=== PATIENT | male | born 1985 | race Caucasian/White ===

== ENCOUNTER 2019-01-25 18:05 | Emergency (ER) | payer BC ==
[2019-01-25] MEDS ORDERED: HYDROCODONE/APAP 7.5/325 MG TAB ONE (19:54)
--- NOTE | 2019-01-25 22:07 | EDPHYS ---
Physician Documentation [facility] Name: Liu Dowling Age: 34 yrs Sex: Male : 1985 Arrival Date: 01/25/2019 Time: 18:07 Bed 26 Private MD: Cristóbal Parry E ED Physician Sirena Dowlingy HPI: 01/25 19:48 This 34 yrs old Male presents to ER via Ambulatory with complaints of Ankle jr8 Injury. 19:48 The patient presents with decreased range of motion, pain, tenderness. The complaints jr8 affect the left ankle. Onset: The symptoms/episode began/occurred acutely, today. Context: The problem was sustained at home, resulted from slipping on steps. Associated signs and symptoms: The patient has no apparent associated signs or symptoms. Modifying factors: The symptoms are alleviated by nothing, the symptoms are aggravated by weight bearing, movement. Severity of symptoms: At their worst the symptoms were moderate, in the emergency department the symptoms are unchanged. The patient has experienced a previous episode. The patient has not recently seen a physician. Historical: - Allergies: 19:03 No Known Allergies; ph - Home Meds: 19:23 Clonidine Oral [Active]; Lunesta Oral [Active]; Wellbutrin Oral [Active]; mg2 - PMHx: 19:03 Depression; insomnia; Hypertension; ph - PSHx: 19:03 ankle; ph - Immunization history:: Adult Immunizations unknown. - Social history:: Smoking status: Patient/guardian denies using tobacco. - Ebola Screening: : No symptoms or risks identified at this time. ROS: 19:48 Eyes: Negative for injury, pain, redness, and discharge, ENT: Negative for injury, jr8 pain, and discharge, Neck: Negative for injury, pain, and swelling, Cardiovascular: Negative for chest pain, palpitations, and edema, Respiratory: Negative for shortness of breath, cough, wheezing, and pleuritic chest pain, Abdomen/GI: Negative for abdominal pain, nausea, vomiting, diarrhea, and constipation, Back: Negative for injury and pain, Skin: Negative for injury, rash, and discoloration, Neuro: Negative for headache, weakness, numbness, tingling, and seizure. 19:48 MS/extremity: Positive for decreased range of motion, pain, tenderness, of the left ankle. Exam: 19:48 Head/Face: Normocephalic, atraumatic. Eyes: Pupils equal round and reactive to light, jr8 extra-ocular motions intact. Lids and lashes normal. Conjunctiva and sclera are non-icteric and not injected. Cornea within normal limits. Periorbital areas with no swelling, redness, or edema. ENT: Nares patent. No nasal discharge, no septal abnormalities noted. Tympanic membranes are normal and external auditory canals are clear. Oropharynx with no redness, swelling, or masses, exudates, or evidence of obstruction, uvula midline. Mucous membranes moist. Neck: Trachea midline, no thyromegaly or masses palpated, and no cervical lymphadenopathy. Supple, full range of motion without nuchal rigidity, or vertebral point tenderness. No Meningismus. Cardiovascular: Regular rate and rhythm with a normal S1 and S2. No gallops, murmurs, or rubs. Normal PMI, no JVD. No pulse deficits. Respiratory: Lungs have equal breath sounds bilaterally, clear to auscultation and percussion. No rales, rhonchi or wheezes noted. No increased work of breathing, no retractions or nasal flaring. Abdomen/GI: Soft, non-tender, with normal bowel sounds. No distension or tympany. No guarding or rebound. No evidence of tenderness throughout. Back: No spinal tenderness. No costovertebral tenderness. Full range of motion. Skin: Warm, dry with normal turgor. Normal color with no rashes, no lesions, and no evidence of cellulitis. Neuro: Awake and alert, GCS 15, oriented to person, place, time, and situation. Cranial nerves II-XII grossly intact. Motor strength 5/5 in all extremities. Sensory grossly intact. Cerebellar exam normal. Normal gait. 19:48 Musculoskeletal/extremity: Extremities: grossly normal except: noted in the left ankle: pain, tenderness, Mild swelling and bruising noted to lateral ankle. No obvious deformity , ROM: limited active range of motion due to pain, limited passive range of motion due to pain, decreased due to pain, Circulation is intact in all extremities. Sensation intact. Vital Signs: 19:03 BP 143 / 100; Pulse 96; Resp 20; Temp 98.5; Pulse Ox 100% on R/A; Weight 88.45 kg; ph Height 5 ft. 9 in. (175.26 cm); Pain 10/10; 21:09 BP 137 / 80; Pulse 93; Resp 18; Pulse Ox 97% on R/A; tl3 21:59 BP 121 / 89; Pulse 96; Resp 18; Pulse Ox 100% ; tl3 19:03 Body Mass Index 28.80 (88.45 kg, 175.26 cm) ph Procedures: 22:05 Splinting: Splint applied to left ankle using kj wrap, applied by nurse. Examined by jr8 mo, post splint application: neurovascular intact, 2+ distal pulses palpable, brisk capillary refill noted, Patient tolerated well. Crutch training provided to patient and/or family. Return demonstration given. MDM: 19:17 Patient medically screened. jr8 22:05 Data reviewed: vital signs, nurses notes, radiologic studies, plain films, and as a jr8 result, I will discharge patient. Data interpreted: Pulse oximetry: on room air is 100 %. Interpretation: normal. Counseling: I had a detailed discussion with the patient and/or guardian regarding: the historical points, exam findings, and any diagnostic results supporting the discharge/admit diagnosis, radiology results, the need for outpatient follow up, a orthopedic surgeon, to return to the emergency department if symptoms worsen or persist or if there are any questions or concerns that arise at home. 01/25 21:05 Order name: XRAY Ankle LEFT 3 view jr8 01/25 21:56 Order name: Ankle Splint: Aircast; Complete Time: 21:56 mg2 01/25 21:56 Order name: Crutches; Complete Time: 21:56 mg2 Administered Medications: 19:45 Drug: [place] (7.5 mg-325 mg) 1 tabs Route: PO; mg2 21:12 Follow up: Response: No adverse reaction tl3 Disposition: 01/25/19 22:06 Discharged to Home. Impression: Sprain of ankle. - Condition is Stable. - Discharge Instructions: Ankle Sprain. - Prescriptions for Ibuprofen 800 mg Oral Tablet - take 1 tablet by ORAL route every 12 hours As needed take with food; 20 tablet. Tylenol- Codeine #3 300-30 mg Oral Tablet - take 2 tablets by ORAL route every 6 hours As needed; 20 tablet. - Medication Reconciliation Form, Thank You Letter, Antibiotic Education, Prescription Opioid Use form. - Follow up: Avelino Merritt MD; When: 1 week; Reason: Recheck today's complaints, Continuance of care, Re-evaluation by your physician. - Problem is new. - Symptoms have improved. Signatures: Dispatcher [employer] Brannon Frankel PA PA jr8 Barbara Alvarado, RN RN ph Annette Kilpatrick RN RN tl3 Abdelrahman Lyn RN RN mg2 Corrections: (The following items were deleted from the chart) 22:16 22:06 01/25/2019 22:06 Discharged to Home. Impression: Sprain of ankle. Condition is tl3 Stable. Forms are Medication Reconciliation Form, Thank You Letter, Antibiotic Education, Prescription Opioid Use. Follow up: Avelino Merritt; When: 1 week; Reason: Recheck today's complaints, Continuance of care, Re-evaluation by your physician. Problem is new. Symptoms have improved. jr8
--- NOTE | 2019-01-25 22:07 | ER ---
Nurse's Notes [facility] Name: Liu Dowling Age: 34 yrs Sex: Male : 1985 Arrival Date: 01/25/2019 Time: 18:07 Bed 26 Private MD: Cristóbal Parry E Diagnosis: Sprain of ankle Presentation: 01/25 19:02 Presenting complaint: Patient states: Fell down stairs and twisted L ankle, denies ph other injury, swelling noted to L ankle ROM limited. Transition of care: patient was not received from another setting of care. Onset of symptoms was January 25, 2019. Risk Assessment: Do you want to hurt yourself or someone else? Patient reports no desire to harm self or others. Initial Sepsis Screen: Does the patient meet any 2 criteria? No. Patient's initial sepsis screen is negative. Does the patient have a suspected source of infection? No. Patient's initial sepsis screen is negative. Care prior to arrival: None. 19:02 Method Of Arrival: Ambulatory ph 19:02 Acuity: ANGE 4 ph Historical: - Allergies: 19:03 No Known Allergies; ph - Home Meds: 19:23 Clonidine Oral [Active]; Lunesta Oral [Active]; Wellbutrin Oral [Active]; mg2 - PMHx: 19:03 Depression; insomnia; Hypertension; ph - PSHx: 19:03 ankle; ph - Immunization history:: Adult Immunizations unknown. - Social history:: Smoking status: Patient/guardian denies using tobacco. - Ebola Screening: : No symptoms or risks identified at this time. Screenin:21 Abuse screen: Denies threats or abuse. Denies injuries from another. Nutritional mg2 screening: No deficits noted. Tuberculosis screening: No symptoms or risk factors identified. Fall Risk Gait- Impaired (20 pts.). Assessment: 19:22 General: Appears in no apparent distress. comfortable, Behavior is calm, cooperative. mg2 Pain: Complains of pain in left ankle Pain does not radiate. Pain currently is 5 out of 10 on a pain scale. Quality of pain is described as aching, Pain began suddenly. Neuro: Level of Consciousness is awake, alert, obeys commands, Oriented to person, place, time, situation. Cardiovascular: Capillary refill < 3 seconds Patient's skin is warm and dry. Respiratory: Airway is patent Respiratory effort is even, unlabored, Respiratory pattern is regular, symmetrical. GI: No signs and/or symptoms were reported involving the gastrointestinal system. : No signs and/or symptoms were reported regarding the genitourinary system. EENT: No signs and/or symptoms were reported regarding the EENT system. Derm: Skin is intact, is healthy with good turgor, Skin is pink, warm \T\ dry. normal. Musculoskeletal: Circulation, motion, and sensation intact. Capillary refill < 3 seconds, Swelling present in left ankle. Injury Description: swelling. 21:09 Reassessment: No changes from previously documented assessment. Patient and/or family tl3 updated on plan of care and expected duration. Pain level reassessed. Patient is alert, oriented x 3, equal unlabored respirations, skin warm/dry/pink. awaiting x ray. 21:59 Reassessment: Patient appears in no apparent distress at this time. No changes from tl3 previously documented assessment. Patient and/or family updated on plan of care and expected duration. Pain level reassessed. Patient is alert, oriented x 3, equal unlabored respirations, skin warm/dry/pink. Brannon at bedside discussing results with pt and family, being discharged. Vital Signs: 19:03 BP 143 / 100; Pulse 96; Resp 20; Temp 98.5; Pulse Ox 100% on R/A; Weight 88.45 kg; ph Height 5 ft. 9 in. (175.26 cm); Pain 10/10; 21:09 BP 137 / 80; Pulse 93; Resp 18; Pulse Ox 97% on R/A; tl3 21:59 BP 121 / 89; Pulse 96; Resp 18; Pulse Ox 100% ; tl3 19:03 Body Mass Index 28.80 (88.45 kg, 175.26 cm) ph ED Course: 18:07 Patient arrived in ED. mr 18:08 Cristóbal Parry MD is Private Physician. mr 19:03 Triage completed. ph 19:04 Arm band placed on Patient placed in an exam room, on a stretcher. Affected limb iced. ph Affected limb elevated. 19:15 Abdelrahman Lyn, BENITA is Primary Nurse. mg2 19:16 Brannon Haq PA is PHCP. jr8 19:16 Vickey Dowling MD is Attending Physician. jr8 19:22 No provider procedures requiring assistance completed. mg2 19:23 Patient has correct armband on for positive identification. mg2 21:32 XRAY Ankle LEFT 3 view In Process Unspecified. EDMS 21:59 Patient did not have IV access during this emergency room visit. Crutch training done. tl3 [place]ko wrap to left ankle. 22:05 Avelino Merritt MD is Referral Physician. jr8 Administered Medications: 19:45 Drug: [place] (7.5 mg-325 mg) 1 tabs Route: PO; mg2 21:12 Follow up: Response: No adverse reaction tl3 Outcome: 21:59 Discharged to home ambulatory. tl3 21:59 Condition: stable 21:59 Discharge instructions given to patient, Instructed on discharge instructions, follow up and referral plans. Demonstrated understanding of instructions, follow-up care, medications, crutch walking, Prescriptions given X 2. 22:06 Discharge ordered by . jr8 22:16 Patient left the ED. tl3 Signatures: Dispatcher [employer] EDAR PalmaDinora RaizaBrannon oscar, ARTEMIO PA jr8 Barbara Alvarado, RN RN Annette Kilpatrick RN RN tl3 Abdelrahman Lyn, BENITA RN mg2
--- NOTE | 2019-01-26 08:14 | RAD REPORT ---
EXAM DESCRIPTION: RAD - Ankle Left 3 View - 01/25/2019 9:32 pm CLINICAL HISTORY: PAIN Twisting injury to left ankle. COMPARISON: No comparisons FINDINGS: Mild soft tissue swelling is seen about the ankle. No acute fracture or dislocation eviden t.
== END 2019-01-25 22:16 | disposition home or self-care (01) ==
LOC: ER 18:05
DX: S93.402A Sprain of unspecified ligament of left ankle, initial encounter (principal); W01.0XXA Fall on same level from slipping, tripping and stumbling without subsequent striking against object, initial encounter; Y93.9 Activity, unspecified; Y92.009 Unspecified place in unspecified non-institutional (private) residence as the place of occurrence of the external cause; F32.9 Major depressive disorder, single episode, unspecified; I10 Essential (primary) hypertension
CPT/HCPCS: 99284